=== PATIENT | male | born 1965 | race Caucasian/White ===

== ENCOUNTER → 2017-06-21 09:07 | Day surgery (SDC) | payer BC ==
--- NOTE | 2017-06-08 21:15 | HP ---
PREOPERATIVE HISTORY AND PHYSICAL: DATE OF ADMISSION: 06/21/17 PROVIDER: Rosana Mclain MD * (DICTATED BY NIURKA UP) CHIEF COMPLAINT: Left shoulder pain. HISTORY OF PRESENT ILLNESS: Jordon is a 51-year-old male, followed by Dr. Mclain for ongoing pain in the left shoulder despite undergoing previous rotator cuff repair surgery. He has nighttime pain. He is limited in his activities. He is interested in surgical intervention for correction of the problem at this point. PAST MEDICAL HISTORY: Hyperlipidemia. PAST SURGICAL HISTORY: Bilateral rotator cuff repairs. He reports no complications with anesthesia with those procedures. CURRENT MEDICATIONS: 1. Fish oil 1000 mg 2 tabs p.o. daily. 2. Simvastatin 10 mg 1 tab p.o. q.h.s. 3. Garlic 400 mg p.o. daily. 4. Aleve as needed for pain. ALLERGIES: No known drug allergies. SOCIAL HISTORY: The patient lives with his . 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 He has never smoked. He drinks one alcoholic beverage per day. He exercises sporadically. REVIEW OF SYSTEMS: Constitutional: Negative for recent hospitalizations, fevers, chills, night sweats, or weight loss. Head: Negative for headaches, lightheadedness, or balance problems. Cardiovascular: Negative for chest or arm pain with exertion, history of heart attack, heart murmur, heart palpitations, high blood pressure, embolism, or deep vein thrombosis. Endocrine : Negative for diabetes or thyroid problems. Hematology: Negative for easy bleeding, bruising, or anemia. PHYSICAL EXAMINATION GENERAL: He is a well-developed, well-nourished male, in no acute distress at rest. He is alert and oriented x3 with appropriate mood and affect. VITAL SIGNS: He is 5 feet 7-1/2 inches, 173 pounds. Blood pressure 130/78, pulse 76, respirations 14, temperature 97.8. HEENT: Normocephalic, atraumatic. Hearing and vision are grossly intact. NECK: His trachea is midline. RESPIRATORY: Lungs are clear to auscultation bilaterally. No wheezes, rales, or rhonchi. CARDIOVASCULAR: Regular rate and rhythm. No murmurs, rubs, or gallops. Normal S1 and S2. ABDOMEN: Soft, nondistended, nontender. Normal bowel sounds. EXTREMITIES: The left shoulder examination demonstrates the skin is intact. There are no abrasions or open wounds. There is normal alignment and no gross deformities. No warmth or erythema. His previous incisions are well healed. He has full range of motion of the shoulder. He has 4+/5 strength in supraspinatus testing, positive Geno's test. Positive impingement Ortega test. Negative Speed's test. He has 5/5 strength with belly press and bear hug. Sensation to light touch is intact distally with a 2+ radial pulse. IMAGING: MRI of the left shoulder shows he does have interval tearing of the supraspinatus and part of the infraspinatus tendon. Subscapularis was intact. IMPRESSION: Left shoulder rotator cuff tear. PLAN: The patient is to undergo left shoulder arthroscopic rotator cuff repair and subacromial decompression by Dr. Mclain on 06/21/17. The risks, benefits, and postoperative course were discussed with the patient at length and he would like to proceed. All of his questions were answered to his full satisfaction. He has understanding to call if he develops problems or concerns. NIURKA UP [id number]/[facility] #: [id number] JAX
[~2017-06-21 09:07] MED LIST: Atracurium* 10 MG/ML 10 ML VIAL ONE; Buffered Lidocaine 0.9% SYRIN* 5 ML/SYR SYRINGE INTRADERM ONE; Buffered Lidocaine 0.9% SYRIN* 5 ML/SYR SYRINGE ONE; Dexamethasone IV* 4 MG/ML 1 ML (4 MG) IV SLOW PU ONE; Dexamethasone IV* 4 MG/ML 1 ML (4 MG) ONE; Famotidine IV* 10 MG/ML 2 ML (20 mg) IV ONE; Famotidine IV* 10 MG/ML 2 ML (20 mg) ONE; Ketorolac INJ* 30 MG/ML 1 ML VIAL ONE; Midazolam* 1 MG/ML 5 ML VIAL (5 MG) ONE; Ondansetron INJ* 2 MG/ML VIAL ONE; Propofol* 10 MG/ML 20 ML BTL IV PUSH ONE; ROPIVACAINE 5 MG/ML 30 ML BTL (0.5%) ONE; ceFAZolin 2 GM PREMIX (*) 2 GM/50 ML BAG IVPB ONE; fentaNYL* 50 MCG/ML 2 ML VIAL (100 MCG VIAL) ONE
[2017-06-21 09:28] VITALS: BP 126/83
== END | disposition home or self-care (01) ==
LOC: OR 09:07
PROVIDERS: ATTEND Orthopaedic Surgery
DX: M75.122 Complete rotator cuff tear or rupture of left shoulder, not specified as traumatic (principal); Z53.09 Procedure and treatment not carried out because of other contraindication
CPT/HCPCS: J0690; J1100; J1885; J2250; J2405; J2704; J2795; J3010

== ENCOUNTER 2017-06-28 07:17 | Day surgery (SDC) | payer BC ==
[~2017-06-28 07:17] MED LIST changes: -Atracurium* 10 MG/ML 10 ML VIAL ONE; -Buffered Lidocaine 0.9% SYRIN* 5 ML/SYR SYRINGE ONE; -Dexamethasone IV* 4 MG/ML 1 ML (4 MG) IV SLOW PU ONE; -Dexamethasone IV* 4 MG/ML 1 ML (4 MG) ONE; -Famotidine IV* 10 MG/ML 2 ML (20 mg) IV ONE; -Famotidine IV* 10 MG/ML 2 ML (20 mg) ONE; -Ketorolac INJ* 30 MG/ML 1 ML VIAL ONE; -Midazolam* 1 MG/ML 5 ML VIAL (5 MG) ONE; -Ondansetron INJ* 2 MG/ML VIAL ONE; -Propofol* 10 MG/ML 20 ML BTL IV PUSH ONE; -ROPIVACAINE 5 MG/ML 30 ML BTL (0.5%) ONE; -ceFAZolin 2 GM PREMIX (*) 2 GM/50 ML BAG IVPB ONE; -fentaNYL* 50 MCG/ML 2 ML VIAL (100 MCG VIAL) ONE
[2017-06-28] MEDS ORDERED: ceFAZolin 2 GM PREMIX (*) 2 GM/50 ML BAG IVPB ONE (07:25)
[2017-06-28] MEDS ORDERED: Midazolam* 1 MG/ML 2 ML VIAL (2 MG) ONE (08:16)
[2017-06-28] MEDS ORDERED: fentaNYL* 50 MCG/ML 2 ML VIAL (100 MCG VIAL) ONE (08:16)
[2017-06-28] MEDS ORDERED: Sodium Chloride * 10 ML ONE (08:18)
[2017-06-28] MEDS ORDERED: Bupivacaine 0.25% SDV* 30 ML ONE (09:38)
[2017-06-28] MEDS ORDERED: Propofol* 10 MG/ML 20 ML BTL IV PUSH ONE (10:27)
[2017-06-28] MEDS ORDERED: Bupivacaine 0.5% SDV PF* 30 ML VIAL ONE (10:27)
[2017-06-28] MEDS ORDERED: fentaNYL* 50 MCG/ML 2 ML VIAL (100 MCG VIAL) IV PRN (10:46)
[2017-06-28] MEDS ORDERED: Ketorolac INJ* 30 MG/ML 1 ML VIAL IV PRN (10:46)
[2017-06-28] MEDS ORDERED: Ondansetron INJ* 2 MG/ML VIAL IV PRN (10:46)
[2017-06-28] MEDS ORDERED: EPINEPHrine AMP 1 MG/ML ONE (11:50)
[2017-06-28] MEDS ORDERED: Ondansetron INJ* 2 MG/ML VIAL ONE (12:52)
[2017-06-28 13:47] VITALS: BP 124/96
--- NOTE | 2017-07-02 00:28 | OP ---
Cc: PCP OPERATIVE REPORT: DATE OF OPERATION: 06/28/17 DATE OF : 69 SURGEON: Rosana Mclain MD ASSISTANTS: NIURKA Russell and NIURKA Junior ANESTHESIOLOGIST: Dr. Romero. ANESTHESIA: General, interscalene block. PRE-OP DIAGNOSIS: Retear of the left rotator cuff with arthritis. POST-OP DIAGNOSIS: Retear of the left rotator cuff with arthritis. OPERATIVE PROCEDURE: Left shoulder arthroscopy with: 1. Extensive glenohumeral debridement including chondroplasty. 2. Revision rotator cuff repair in double-row fashion of the supraspinatus and infraspinatus tendon. 3. Removal of foreign bodies x3. 4. Revision of subacromial decompression. COMPLICATIONS: None. ESTIMATED BLOOD LOSS: Minimal. IMPLANTS: Two Helicoils and 1 MultiFix. INDICATIONS: Jordon Cummins is a 51-year-old male who underwent a rotator cuff repair of the supraspinatus, infraspinatus as well as open subscap repair who failed his rotator cuff repair. He had persistent symptoms. He had failed the supraspinatus tendon and had a full thickness retracted tear. After extensive discussion of risks and benefits of the surgical versus nonoperative treatment, he has elected to proceed with surgical treatment. The risks and benefits were discussed in length which include but not limited to bleeding, infection, damage to nerves, vessels, surrounding structures, wound nonhealing, persistent pain, need for further surgery, scarring, stiffness, incomplete relief of symptoms, risks of anesthesia. DESCRIPTION OF PROCEDURE: The patient was greeted in the preoperative area by the attending surgeon. Correct extremity was marked. He underwent interscalene nerve block by the anesthesiologist, after which he was brought to the operative suite and placed in supine position on the operating table. He then underwent general anesthesia via endotracheal intubation after which he was placed in the right lateral decubitus position with all bony prominences padded. An axillary roll was placed and he was secured with peg board and the left arm was suspended with 10 pounds of traction. The left shoulder was prepped and draped in usual sterile fashion with chlorhexidine soap, scrub, and alcohol wipe and a final prep with ChloraPrep. After appropriate surgical pause indicating site, side, procedure, administration of antibiotics the posterolateral portal was made sharply with an 11 blade. The scope was introduced into the joint and the joint was examined. The glenohumeral joint had glenohumeral arthritis which appeared to be mildly worsened from his last surgery. He did have small loose bodies but these were all less than 5 mm and small amounts of loose debris. This was debrided back. Chondroplasty was done at the glenohumeral joint which had grade 2 changes and unstable flaps and may be small areas of grade 3 change. There was evidence of a full thickness rotator cuff tear with 3 sutures that were present. The attention was then directed to the subacromial space to help address this. The scope was positioned in the subacromial space. The lateral portal was made in outside-in fashion. Shaver was used to debride the tissue back and expose the undersurface of the acromion, the abundant bursa was present. There was evidence of a full thickness rotator cuff tear with retraction all the way to the level of glenoid. Electrocautery device was used to allow for lysis adhesions. It was apparent that this was a T-shaped tear with flaps that were scarred to the subdeltoid bursa. The T was in between infraspinatus and supraspinatus. This took some time to mobilize the tissues and once the infraspinatus was gently mobilized the supraspinatus leaflet was then mobilized. The undersurface of the acromion was identified and skeletonized using electrocautery device. Revision decompression was done to make sure that there was no areas of impingement of the rotator cuff. At this point, the greater tuberosity was prepared but the sutures were present, therefore these needed to be removed, these were carefully cut and at least 4 separate foreign bodies were removed. Then the greater tuberosity was prepared using the bay for decortication as well as the rasp to allow for good bony bleeding edge. The supraspinatus was carefully mobilized, once the tissues were fully mobilized , the beginning of the side to side repair was then done using #2 ULTRABRAID suture passed in a simple fashion. Two of them were used to do side to side repair, which helped to restore and reapproximate the rotator cuff. At this point, two 4.75 Helicoils were placed with separate stab incision and with excellent purchase in the bone. Starting awl was then used do a small microfracture of the greater tuberosity to allow for further areas of healing and to allow for bone marrow aspiration. The sutures were then passed in horizontal mattress configuration beginning anteriorly through the supraspinatus and then through the supra and infraspinatus and finally through the infraspinatus tendon. All the sutures were tied down using arthroscopic knot tying. The sutures were then passed through 1 MultiFix anchor and carefully secured with double row fixation with excellent purchase. Final images were obtained. The shoulder was taken through range of motion. The wounds were copiously irrigated with sterile saline and portals were closed with 3-0 nylon. Sterile dressings were applied as well as a Cryo/Cuff and Ultra sling. He was awoken from anesthesia and transferred to PACU in stable condition. POSTOPERATIVE PLAN: He will be nonweightbearing for 6 weeks. He will be in the sling during that time. He will be allowed to not do the elbow, hand, and wrist range of motion. He will start physical therapy in 4 weeks. He will be discharged with pain medications as well as antibiotics due to this being a revision surgery. DVT prophylaxis was considered, but deferred due to no previous personal or family history. I will see the patient back in 10 to 14 days. [id number]/[facility] #: [id number] JAX
== END 2017-06-28 13:41 | disposition home or self-care (01) ==
LOC: OR 07:17
PROVIDERS: ATTEND Orthopaedic Surgery
DX: S46.012A Strain of muscle(s) and tendon(s) of the rotator cuff of left shoulder, initial encounter (principal); M19.012 Primary osteoarthritis, left shoulder; E78.5 Hyperlipidemia, unspecified; X58.XXXA Exposure to other specified factors, initial encounter; Y92.9 Unspecified place or not applicable
CPT/HCPCS: C1713; J0171; J0690; J2250; J2405; J2704; J3010